=== PATIENT | male | born 1965 | race Hispanic/Latino ===

== ENCOUNTER 2022-03-22 06:05 | Observation (INO) | payer OTHER ==
[2022-03-17 10:29] LABS: Absolute Lymphocytes (CBC) 1.3 K/uL (0.7-4.9); Hematocrit 46.1 % (39.6-49.0); Lymphocytes % 26.2 % (15.3-44.8); MCV 90.7 fL (80-100); RBC Red Blood Cell Count 5.08 M/uL (4.33-5.43)
[2022-03-17 10:38] LABS: Protime INR 1.04
--- NOTE | 2022-03-17 10:46 | RAD REPORT ---
EXAM DESCRIPTION: RAD - Chest Pa And Lat (2 Views) - 03/17/2022 10:12 am CLINICAL HISTORY: pre op for surgery Chest pain. COMPARISON: Chest Pa And Lat (2 Views) dated 04/29/2020 FINDINGS: Mild interstitial pulmonary edema suspected. The heart is upper limit of normal in size. N o displaced fractures. IMPRESSION: Mild CHF.
[2022-03-17 10:56] LABS: SARS-CoV-2 Antigen Rapid Res Negative (Negative)
[2022-03-17 11:13] LABS: Potassium 3.7 mmol/L (3.5-5.1)
--- NOTE | 2022-03-18 17:30 | EKG ---
Test Date: 2022-03-17 Test Time: 10:14:44 Food Service: [facility] MEASUREMENT RESULTS: Intervals: Rate: 67 VT: 140 QRSD: 78 QT: 384 QTc: 405 [place]: P: 57 VT: 140 QRS: 32 T: -11 INTERPRETIVE STATEMENTS: Normal sinus rhythm Nonspecific T wave abnormality Abnormal ECG No previous ECG available for comparison Electronically Signed On 03-18-22 17:28:03 CDT by Leandro Garibay
[2022-03-22] MEDS ORDERED: Ringers Lactate 1,000 ML IV ONE ×2 (06:16→10:38)
[2022-03-22] MEDS ORDERED: LIDOCAINE 2% MPF 5 ML VIAL ONE ×2 (06:49→08:13)
[2022-03-22] MEDS ORDERED: dexAMETHasone 4 MG/ML VIAL ONE (06:50)
[2022-03-22] MEDS ORDERED: BUPIVACAINE 0.25% PF 10 ML VIAL ONE (06:50)
[2022-03-22] MEDS ORDERED: BUPIVACAINE 0.5% Inj,MDV 50 mL VIAL ONE (06:50)
[2022-03-22] MEDS ORDERED: HYDROMORPHONE HCL 1 MG/ML INJ ONE ×2 (06:50→11:58)
[2022-03-22] MEDS ORDERED: MIDAZOLAM HCL 2 MG/2 ML INJ ONE (06:55)
[2022-03-22] MEDS ORDERED: FENTANYL CITR 100 MCG/2 ML ONE (06:55)
[2022-03-22] MEDS ORDERED: SODIUM BICARB 50 MEQ/50ML VIAL ONE (06:56)
[2022-03-22] MEDS ORDERED: CLINDAMYCIN 600MG/D5W 600 MG/50 ML BAG IV SCH (07:00)
[2022-03-22] MEDS ORDERED: BUPIVACA 0.5%/EPI 0.0005%/PF 30 ML VIAL ONE (07:24)
[2022-03-22] MEDS ORDERED: TRANEXAMIC ACID 1,000 MG/10 ML VIAL IV ONE (07:25)
[2022-03-22] MEDS ORDERED: propofoL 200 MG/20 ML VIAL IV ONE (08:13)
[2022-03-22] MEDS ORDERED: KETAMINE HCL 500 MG/5 ML VIAL ONE (08:21)
[2022-03-22] MEDS ORDERED: ONDANSETRON 4 MG/2 ML VIAL ONE (10:33)
[2022-03-22] MEDS ORDERED: dexAMETHasone 10 MG/ML VIAL ONE (10:33)
[2022-03-22] MEDS ORDERED: ACETAMINOPHEN 325 MG TABLET PO PRN (10:58)
[2022-03-22] MEDS ORDERED: DOCUSATE NA 100 MG CAP PO PRN (10:58)
[2022-03-22] MEDS ORDERED: ONDANSETRON 4 MG/2 ML VIAL IV PRN (10:58)
--- NOTE | 2022-03-22 10:58 | P.BOP ---
Preoperative diagnosis: right knee osteoarthritis Postoperative diagnosis: same Primary procedure: right total knee arthroplasty Supervisor: NONE,NONE Estimated blood loss: 20 cc Specimen: right knee bone remnants Findings: see dictation Anesthesia: General Complications: None Implants: Biomet Román Persona 8 STD femur, F tibia, 32 patella, 10 CR poly Fluids & blood products: per anesthesia record; TT: 84 mins @ 300 mmHg Transferred to: Recovery Room Condition: Good
[2022-03-22] MEDS ORDERED: TRAMADOL HCL 50 MG TAB PO PRN (11:00)
--- NOTE | 2022-03-22 11:36 | RAD REPORT ---
EXAM DESCRIPTION: RAD - Knee Right 2 View - 03/22/2022 11:28 am CLINICAL HISTORY: Post Op COMPARISON: No comparisons FINDINGS/IMPRESSION: Immediate postoperative changes from right knee arthroplasty. No hardware compl ications. No acute fractures.
[2022-03-22 11:38] LABS: Hematocrit 43.1 % (39.6-49.0)
[2022-03-22] MEDS ORDERED: MORPHINE 2 MG/ML SYR IV PRN (11:47)
[2022-03-22 11:54] VITALS: O2SAT 95
[2022-03-22] MEDS: HYDROCODONE/APAP 7.5/325 MG TAB PO PRN ×2 (14:43→18:21)
[2022-03-22 14:54] VITALS: BMI 40.3
--- NOTE | 2022-03-22 17:50 | P.OP ---
Preoperative diagnosis: right knee osteoarthritis Postoperative diagnosis: same Primary procedure: right total knee arthroplasty Anesthesia: general Estimated blood loss: 20 cc Specimen: right knee bone remnants Findings: see dictation Operative Technique: Indication For Procedure: Harpreet is an 57 year-old male presenting to my clinic with signs, symptoms and x-ray findings consistent with right knee osteoarthritis. I discussed with the patient at length risks and benefits associated with operative and nonoperative treatment. He had failed conservative treatment measures including corticosteroid injections, viscosupplementation injections and had significant difficulties with ADLs secondary to his pain. We discussed operative treatment and elected to proceed with right total knee arthroplasty. He expressed understanding and elected to proceed with operative treatment. Description Of Procedure: After informed consent was obtained, the patient was identified in the preoperative holding area. The right lower extremity was marked. The patient was then taken to the PACU where he underwent a right lower extremity adductor canal block performed by Anesthesia. He was then taken to the operating room, transferred to the operating table in supine fashion, and placed under general anesthesia. His right lower extremity was then prepped and draped in usual sterile fashion. A time-out was initiated. The correct patient and procedure were confirmed and identified. The patient did receive his preoperative prophylactic antibiotics. The right lower extremity was then exsanguinated and tourniquet was inflated to 300 mmHg. Approximately 15 cm longitudinal incision was made centered over the anterior aspect of the right knee. Dissection was then taken to the extensor mechanism and a medial parapatellar arthrotomy was performed. The patella was everted and dislocated laterally with some difficulty and the knee was flexed and the fat pad was excis ed. Medial meniscus, lateral meniscus and ACL were all excised exposing the distal femur. Excess hypertrophic synovium was also excised within the suprapatellar pouch. The patient had an MRI of his right knee preoperatively for surgical planning and creation of cutting blocks. The cutting block was then placed over the distal femur and pins were then placed. The distal femoral cutting block was then placed over the pins. Knee joint was then used to ensure proper depth cut and the distal femur was then cut. The chamfer cutting guide was then placed over the distal end of the femur. Anterior, posterior cuts as well as anterior and posterior chamfer cuts were then made again confirming proper depth of the cut using an [place] wing. Excess bone remnants were then sent to pathology for further evaluation. Next, attention was taken to the proximal tibia. A tibial jig and tibial cutting block was then placed on proximal aspect of the left tibia and locked into position. Pins were then placed and alignment guide was then used to confirm proper alignment of the cut and then coronal and sagittal planes. Once this was confirmed, the cutting jig was placed over the pins and the proximal tibia was cut. Sizing trays were then selected and size 10 mm spacer was used. After this was completed there was good overall balance in flexion and extension with the 10 mm spacer. Next, the trial implants were then placed using the size 8 standard CR femur and a size F tibia with an 10 mm poly. There was overall good range of motion and good stability trial implants were then removed. The wound was then irrigated thoroughly with normal saline and the knee was then injected with 30 cc of 0.5% Marcaine both in the posterior capsule and medial and lateral gutters as well as quadriceps tendon and periosteum. The tibia was then punched and marked after the patella button was placed. The femur was drilled. The cement was then prepared on the back table. Cement was then placed first on the tibial surface followed by size F tibia. Excess cement was removed with [place] elevators. Size 8 standard CR femur was then placed on the distal femur after cement was placed on the distal femur. Excess cement was then removed and a size 10 mm trial poly was then placed. The knee was held in extension as the cement hardened. Undersurface of the patella was prepared debriding osteophytes using rongeurs as well as osteophytes had been debrided off the proximal tibia with rongeurs and osteotomes to aid with the medial tightness. Cement was placed on the undersurface of the patella after it was cut and a size 32 patella was placed. Once the cement was hardened, the knee was ranged, there was good overall stability both in flexion, extension and as well as stability with varus and valgus stresses. Trial poly was then removed and a size 10 mm CR poly was then placed and locked into position. The knee was then ranged again. There was good overall range of motion both for flexion and extension with good stability. The wound was then irrigated again thoroughly with normal saline using pulse lavage. Tourniquet was let down. Hemostasis was achieved using Bovie electroc autery. Extensor mechanism was then approximated using a #1 Vicryl both in interrupted and running fashion. The fascia was then approximated using 0 Vicryl. Subcutaneous tissue was approximated with a 2-0 Vicryl. Skin was approximated using lamont. Sterile dressings were applied. The patient was awakened and transferred back in stable condition Complications: None Implants: Biomet Zimer Persona 8 STD femur, F tibia, 32 patella, 10 CR poly Fluids & blood products: per anesthesia record; TT: 84 mins @ 300 mmHg Transferred to: Recovery Room Condition: Good
[2022-03-23] MEDS ORDERED: ENOXAPARIN 30 MG/0.3 ML SQ SCH (06:00)
[2022-03-23] MEDS ORDERED: PANTOPRAZOLE 40MG TABLET PO SCH (06:30)
[2022-03-23] MEDS ORDERED: AMLODIPINE 5 MG TAB PO SCH (09:00)
[2022-03-23] MEDS ORDERED: LOSARTAN POTASSIUM 50 MG TABLET PO SCH (09:00)
[2022-03-23] MEDS ORDERED: ATORVASTATIN 10 MG TAB PO SCH (09:00)
[2022-03-23] MEDS ORDERED: CLOPIDOGREL 75 MG TABLET PO SCH (09:00)
[2022-03-23] MEDS ORDERED: hydroCHLOROthiazide 12.5 MG CAP PO SCH (09:00)
[2022-03-23] MEDS ORDERED: HOME MED 1 EA UNK (Losartan/Hydrochlorothiazide [Losartan-Hctz 100-12.5 Mg Tab] Tablet) PO SCH (09:00)
[2022-03-23] MEDS: HYDROCODONE/APAP 7.5/325 MG TAB PO PRN ×2 (09:11→12:51)
--- NOTE | 2022-03-23 12:03 | P.DS ---
Admission Date: 03/22/22 Discharge Date: 03/23/22 Disposition: DC HOME/HOME HEALTH CARE Discharge Condition: GOOD Reason for Admission: R TKA Consultations: none Procedures: R TKA 03/22/2022 Brief History of Present Illness: 57 y/o male s/p R TKA on 03/22/2022 admitted to the floor in stable condition Hospital Course: Admitted to the floor postop for pain control and PT. Did well with PT and mobilized safely with vital signs stable. on lovenox while in hospital for dvt prophylaxis and discharged on Xarelto. F/u with Dr. Arredondo in 2 weeks for staple removal Vital Signs/Physical Exam: Temp Pulse Resp BP Pulse Ox 99.0 F 87 18 137/75 97 03/23/22 08:00 03/23/22 09:12 03/23/22 09:11 03/23/22 09:12 03/23/22 09:11 Laboratory Data at Discharge: WBC 4.8 K/uL (4.3-10.9) 03/17/22 10:12 Hgb 14.4 g/dL (13.6-17.9) 03/23/22 05:28 Hct 40.0 % (39.6-49.0) 03/23/22 05:28 Plt Count 163 K/uL (152-406) 03/17/22 10:12 PT 11.5 SECONDS (9.5-12.5) 03/17/22 10:12 INR 1.04 03/17/22 10:12 APTT 29.7 SECONDS (24.3-36.9) 03/17/22 10:12 Sodium 139 mmol/L (136-145) 03/17/22 10:12 Potassium 3.7 mmol/L (3.5-5.1) 03/17/22 10:12 BUN 21 mg/dL (7-18) H 03/17/22 10:12 Creatinine 1.04 mg/dL (0.55-1.3) 03/17/22 10:12 Glucose 141 mg/dL (74-106) H 03/17/22 10:12 Home Medications: Atorvastatin Calcium [Lipitor*] 10 mg PO DAILY 04/29/20 Clopidogrel Bisulfate [Plavix*] 75 mg PO DAILY 04/29/20 Losartan/Hydrochlorothiazide [Losartan-Hctz 100-12.5 mg Tab] 1 each PO DAILY 04/29/20 Amlodipine [Norvasc*] 1 tab PO DAILY 03/17/22 Omeprazole 1 tab PO DAILY 03/17/22 Hydrocodone 7.5/APAP 325 [[place] 7.5/325 mg*] 1 tab PO Q4H PRN tab 03/23/22 Physician Discharge Instructions: keep dressing clean and dry; begin Xarelto tomorrow morning 03/24/2022 with breakfast; use bilateral TEDs x 2 weeks Diet: Regular Activity: Weight bearing as tolerated Followup: Kyle Arredondo MD [Primary Care Provider] - 1-2 Weeks
[2022-03-23 13:29] VITALS: BP 137/69; TEMP 98.6
== END 2022-03-23 13:10 | disposition home health service (06) ==
LOC: OR 06:05 → 2ND 10:58
PROVIDERS: ADMIT Orthopaedic Surgery Sports Medicine; ATTEND Orthopaedic Surgery Sports Medicine
PROC: 0SRC069 Replacement of Right Knee Joint with Oxidized Zirconium on Polyethylene Synthetic Substitute, Cemented, Open Approach (ICD-10-PCS; principal; 2022-03-22 08:00)
DX: M17.11 Unilateral primary osteoarthritis, right knee (principal); Z88.0 Allergy status to penicillin; Z88.8 Allergy status to other drugs, medicaments and biological substances; Z20.822 Contact with and (suspected) exposure to COVID-19
CPT/HCPCS: 93005; 85025; 80048; 36415 ×3; 85610; 88305; 88311; 85730; 85018 ×2; 85014 ×2; 71046; 73560; 97110 ×3; 97116 ×2; 97139; 97161; 97530; 94010; 87811; 27447; J2704; J1100 ×2; J1650; J2250; J3010; J1170 ×2; G0378 ×3; J7120 ×2; J2405; G0379; 88304